=== PATIENT | male | born 1960 | race Caucasian/White ===

== ENCOUNTER 2018-03-08 07:50 | Emergency (ER) | payer SELFPAY ==
[2018-03-08 08:12] LABS: ADD MAN DIFF? NO
[2018-03-08 08:15] LABS: BASO % 0 % (0-3); EOS % 1 % (0-3); HEMOGLOBIN 15.2 g/dL (13.0-17.5); LYMPH # 1.7 x10^3/uL (1.0-4.8); LYMPH % 23 % (24-48); MEAN CORPUSCULAR HEMOGLOBIN 34 pg (25-35); MEAN CORPUSCULAR HGB CONC 35 g/dL (31-37); MEAN CORPUSCULAR VOLUME 98 fL (79-100); MONO # 0.3 x10^3/uL (0.0-1.1); MONO % 4 % (0-9); NEUT # 5.4 x10^3uL (1.8-7.7); NEUT % 72 % (31-73); PLATELET COUNT 181 x10^3/uL (140-400); RED BLOOD COUNT 4.47 x10^6/uL (4.30-5.70); RED CELL DISTRIBUTION WIDTH 15.2 % (11.5-14.5); WHITE BLOOD COUNT 7.4 x10^3/uL (4.0-11.0)
[2018-03-08] MEDS: IV DEXTROSE 5%-LACT RINGERS 1,000 ML IV (08:21)
[2018-03-08 08:23] LABS: INR 0.9 (0.8-1.1); PROTHROMBIN TIME PATIENT 11.6 SEC (11.7-14.0)
[2018-03-08 08:30] LABS: ANION GAP 14 (6-14); BLOOD UREA NITROGEN 16 mg/dL (8-26); BUN/CREATININE RATIO 20 (6-20); CALCIUM 8.7 mg/dL (8.5-10.1); CARBON DIOXIDE 28 mmol/L (21-32); CHLORIDE 97 mmol/L (98-107); CREATININE 0.8 mg/dL (0.7-1.3); GFR 98.9; GLUCOSE 79 mg/dL (70-99); POTASSIUM 3.2 mmol/L (3.5-5.1); SODIUM 139 mmol/L (136-145)
[2018-03-08 08:31] LABS: ETHANOL 213 mg/dL (0-10)
[2018-03-08 08:34] LABS: ALBUMIN/GLOBULIN RATIO 1.1 (1.0-1.7); ALK PHOS 90 U/L (46-116); ALT (SGPT) 56 U/L (16-63); AST (SGOT) 85 U/L (15-37); LIPASE 200 U/L (73-393); MAGNESIUM 1.5 mg/dL (1.8-2.4); TOTAL BILIRUBIN 0.9 mg/dL (0.2-1.0); TOTAL PROTEIN 7.5 g/dL (6.4-8.2)
[2018-03-08] MEDS: THIAMINE 100 MG in IV DEXTROSE 5% 50 ML IV (08:34)
[2018-03-08 08:36] LABS: TROPONINI < 0.017 ng/mL (0.000-0.055)
[2018-03-08 08:42] LABS: CKMB INDEX 0.6 % (0-4); CKMB MASS 2.3 ng/mL (0.0-3.6); CREATINE KINASE 401 U/L (39-308)
[2018-03-08] MEDS: POTASSIUM CHLORIDE 20 MEQ TABLET.ER. PO (09:08)
[2018-03-08] MEDS: MULTIVITAMIN I-VITE TABLET. PO (09:08)
[2018-03-08] MEDS: MAGNESIUM OXIDE 400 MG TABLET PO (09:08)
[2018-03-08 09:20] LABS: ACETONE NEG (NEG)
== END 2018-03-08 09:50 | disposition home or self-care (01) ==
LOC: ER 07:50
DX: R42 Dizziness and giddiness (principal); F10.129 Alcohol abuse with intoxication, unspecified; F17.210 Nicotine dependence, cigarettes, uncomplicated
CPT/HCPCS: 36415; 71045; 80053; 82010; 82553; 83690; 83735; 84484; 85025; 85610; 93005; 96365; 96375; 99285-25; G0480